=== PATIENT | female | born 1970 | race Caucasian/White ===

== ENCOUNTER 2016-10-14 05:37 | Day surgery (SDC) | payer BC ==
[~2016-10-14] VITALS: Ht 165.1 cm; Wt 69.1 kg
[~2016-10-14 05:37] MED LIST: ATARAX10 MG PO; Cipro PO; ELAVIL10 MG PO; FLAGYL500 MG PO; Flagyl PO; LEVAQUIN750 MG PO; MAGNESIUM250 MG PO; MAXALT10 MG PO; NEURONTIN300 MG PO; PERCOCET 5/31 TABLET PO; Percocet 5/325,Endoc PO; Phenergan PO; TOPAMAX100 MG PO; VITAMIN B-12 51 EACH SL; ZOFRAN4 MG PO
[2016-10-14 06:01] VITALS: BP 138/86
[2016-10-14 15:26] LABS: ANION GAP 11 MEQ/L (2-14); CHLORIDE 110 MEQ/L (99-109); MAGNESIUM 1.6 mg/dl (1.3-2.7); POTASSIUM 3.5 MEQ/L (3.7-5.4); SAMPLE HEMOLYSIS CHECK 0; SAMPLE ICTERIC CHECK 0; SAMPLE LIPEMIA CHECK 0; SODIUM 139 MEQ/L (136-147)
[2016-10-14 15:29] VITALS: BP 107/59
[2016-10-14 15:31] LABS: GFR ESTIMATE (CALCULATED) > 59 mL/min/; GLUCOSE 180 mg/dL (70-99); UREA NITROGEN (BUN) 10 mg/dL (9-23)
[2016-10-14 15:36] LABS: TROP-I INTERPRETATION NEGATIVE; TROPONIN-I < 0.01 ng/mL (0.0-0.30)
[2016-10-14 19:41] VITALS: BP 125/74
[2016-10-14 22:16] LABS: TROP-I INTERPRETATION NEGATIVE; TROPONIN-I < 0.01 ng/mL (0.0-0.30)
[2016-10-14 23:35] VITALS: BP 120/71
[2016-10-15 03:54] VITALS: BP 130/82
[2016-10-15 05:29] LABS: HEMATOCRIT 32.9 % (36.0-46.0); MCH 29.7 PG (29.0-34.0); MEAN PLAT.VOLUME 10.2 uM^3 (9.5-12.4); PLATELET COUNT 211 K/uL (156-360); RBC DIS.WIDTH-SD 39.8 % (39-53); RED BLOOD COUNT 3.87 M/uL (3.80-5.20); WHITE BLOOD COUNT 10.9 K/uL (4.1-10.2)
[2016-10-15 05:40] LABS: TROP-I INTERPRETATION NEGATIVE; TROPONIN-I < 0.01 ng/mL (0.0-0.30)
[2016-10-15 06:03] LABS: ANION GAP 8 MEQ/L (2-14); CHLORIDE 111 MEQ/L (99-109); GFR ESTIMATE (CALCULATED) > 59 mL/min/; GLUCOSE 142 mg/dL (70-99); POTASSIUM 4.1 MEQ/L (3.7-5.4); SAMPLE HEMOLYSIS CHECK 0; SAMPLE ICTERIC CHECK 0; SAMPLE LIPEMIA CHECK 0; SODIUM 139 MEQ/L (136-147); UREA NITROGEN (BUN) 8 mg/dL (9-23)
[2016-10-15 06:08] LABS: MAGNESIUM 2.6 mg/dl (1.3-2.7)
[2016-10-15 06:26] VITALS: BP 111/64
[2016-10-15] MEDS ORDERED: TOPIRAMATE100 MG PO (09:53)
== END 2016-10-15 10:17 | disposition home or self-care (01) ==
LOC: SDC 05:37 → 2SOUTH 11:00 → 2EAST 11:00
PROVIDERS: Hospitalist
DX: E04.1 Nontoxic single thyroid nodule (principal); I97.89 Other postprocedural complications and disorders of the circulatory system, not elsewhere classified; R00.0 Tachycardia, unspecified; E87.6 Hypokalemia; E83.42 Hypomagnesemia; M79.7 Fibromyalgia
CPT/HCPCS: 80048; 83735; 84484; 85027; 88307; 93005; 94799; G0378; J0131; J0330; J0690; J1100; J1170; J2250; J2270; J2405; J2765; J3010; J3475; J3480; J7050